=== PATIENT | female | born 1965 | race American Indian/Alaskan Native ===

== ENCOUNTER 2017-05-17 17:49 | Emergency (ER) | payer OTHER ==
[2017-05-17] MEDS ORDERED: TORADOL IM ONE (22:38)
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
[2017-05-17] MEDS ORDERED: TORADOL ONE (22:46)
[2017-05-18 00:27] VITALS: BP 188/100
== END 2017-05-17 23:15 | disposition home or self-care (01) ==
LOC: ED 17:49
DX: S39.012A Strain of muscle, fascia and tendon of lower back, initial encounter (principal); S16.1XXA Strain of muscle, fascia and tendon at neck level, initial encounter; I48.91 Unspecified atrial fibrillation; V89.2XXA Person injured in unspecified motor-vehicle accident, traffic, initial encounter; Y93.9 Activity, unspecified; Y99.9 Unspecified external cause status; Y92.410 Unspecified street and highway as the place of occurrence of the external cause
CPT/HCPCS: 96372; 99282; J1885

== ENCOUNTER 2019-08-06 20:36 | Emergency (ER) | payer SELFPAY ==
--- NOTE | 2019-08-06 21:36 | Emergency Department Report ---
Blank Doc - Documentation Documentation: This is a 53-year-old female that presents with abdominal pain, nausea, and body aches. This initial assessment/diagnostic orders/clinical plan/treatment(s) is/are subject to change based on patient's health status, clinical progression and re- assessment by fellow clinical providers in the ED. Further treatment and workup at subsequent clinical providers discretion. Patient/guardians urged not to elope from the ED as their condition may be serious if not clinically assessed and managed. Initial orders include: 1- Patient sent to [facility] for further evaluation and treatment 2- labs 3- UA
[2019-08-06 21:55] LABS: Basophils % (Auto) 0.2 % (0.0-1.8); Eosinophils % (Auto) 0.2 % (0.0-4.3); Hematocrit 32.1 % (30.3-42.9); Hemoglobin 10.9 gm/dl (10.1-14.3); Lymphocytes # (Auto) 0.5 K/mm3 (1.2-5.4); Lymphocytes % (Auto) 13.1 % (13.4-35.0); Mean Corpuscular HGB Conc 34 % (30-34); Mean Corpuscular Volume 96 fl (79-97); Monocytes # (Auto) 0.2 K/mm3 (0.0-0.8); Monocytes % (Auto) 5.9 % (0.0-7.3); Platelet Count 198 K/mm3 (140-440); Red Blood Count 3.35 M/mm3 (3.65-5.03); Red Cell Distribution Width 14.1 % (13.2-15.2)
[2019-08-06 22:16] LABS: BUN/Creatinine Ratio 16; Blood Urea Nitrogen 11 mg/dL (7-17); Calcium 9.1 mg/dL (8.4-10.2)
[2019-08-06 22:17] LABS: Alanine Aminotransferase 14 units/L (7-56); Hemolysis Index 50
[2019-08-07] MEDS ORDERED: TORADOL IV ONE (00:23)
[2019-08-07] MEDS ORDERED: NACL 0.9% 1000 ML 1,000 ML IV ONE (00:23)
[2019-08-07] MEDS ORDERED: PEPCID IV ONE (00:23)
[2019-08-07] MEDS ORDERED: ZOFRAN IV ONE (00:23)
[2019-08-07 01:58] LABS: Bilirubin,Urine NEG (Negative); Blood,Urine NEG (Negative); Color,Urine Yellow (Yellow); Mucus,Urine FEW /HPF; Protein,Urine <15 mg/dL mg/dL (Negative); Urobilinogen,Urine < 2.0 mg/dL (<2.0)
[2019-08-07] MEDS ORDERED: ROCEPHIN/NS 1 GM/50 ML 1 GM/50 ML BAG IV ONE (02:35)
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
[2019-08-07 03:41] VITALS: BP 111/72
== END 2019-08-07 03:39 | disposition home or self-care (01) ==
LOC: ED 20:36
DX: A08.4 Viral intestinal infection, unspecified (principal); N39.0 Urinary tract infection, site not specified; I48.91 Unspecified atrial fibrillation
CPT/HCPCS: 36415; 80053; 81001; 83690; 85025; 96361; 96365; 96375; 99283; J0696; J1885; J2405; J7030